=== PATIENT | female | born 2000 | race Hispanic/Latino ===

== ENCOUNTER 2021-02-28 03:10 | Emergency (ER) | payer MEDICAID, OTHER ==
[2021-02-28 03:38] LABS: APPEARANCE,URINE Turbid (CLEAR); BILIRUBIN,URINE Negative (NEGATIVE); COLOR,URINE Yellow (YELLOW); GLUCOSE, URINE (UA) Negative (NEGATIVE); KETONES,URINE >=80 mg/dL (NEGATIVE); LEUKOCYTE ESTERASE ,URINE Negative (NEGATIVE); NITRATE,URINE Negative (NEGATIVE); OCCULT BLOOD,URINE Moderate (NEGATIVE); PH,URINE 6.5 (5.0-8.0); PROTEIN,URINE 300 mg/dL (NEGATIVE)
[2021-02-28 03:48] LABS: HCG,QUAL RESULT NEGATIVE (NEGATIVE)
[2021-02-28 03:49] LABS: RBC,URINE 0-1 /HPF (0-1); WBC,URINE 0-1 /HPF (0-1)
[2021-02-28 03:50] LABS: AMORPHOUS SEDIMENT,UR Moderate /LPF (None Seen); BACTERIA,URINE Few /HPF (None Seen)
[2021-02-28] MEDS ORDERED: CEFTRIAXONE SODIUM 1 GM ONE (05:13)
[2021-02-28] MEDS ORDERED: MORPHINE SULFATE 5 MG/ML VIAL ONE (05:13)
[2021-02-28] MEDS ORDERED: LIDOCAINE HCL-MPF 1% 2ML VIAL ONE (05:13)
== END 2021-02-28 07:43 | disposition home or self-care (01) ==
LOC: EDH 03:10
DX: N39.0 Urinary tract infection, site not specified (principal)
CPT/HCPCS: 81001; 81025; 96372 ×2; 99284; J0696; J2270; J3490